=== PATIENT | female | born 1990 | race African-American/Black ===

== ENCOUNTER 2018-11-20 08:23 | Emergency (ER) | payer MEDICAID ==
[~2018-11-20] VITALS: Ht 160 cm; Wt 63.5 kg
[2018-11-20 08:41] VITALS: BP 105/66
== END 2018-11-20 10:44 | disposition left against medical advice (07) ==
LOC: ER 08:23
DX: H92.01 Otalgia, right ear (principal)
CPT/HCPCS: 99281

== ENCOUNTER 2021-07-05 16:49 | Emergency (ER) | payer MEDICAID ==
[~2021-07-05] VITALS: Ht 160 cm; Wt 69.0 kg
[2021-07-05 17:02] VITALS: BP 112/66
[2021-07-05] MEDS ORDERED: ACETAMINOPHEN 325MG TABLET PO PRN (17:30)
[2021-07-05 17:44] LABS: CLARITY URINE CLEAR (CLEAR); COLOR URINE YELLOW (YELLOW); KETONES URINE NEGATIVE (NEGATIVE); LEUKOCYTE ESTERASE URINE 1+ (NEGATIVE); NITRITE URINE NEGATIVE (NEGATIVE); OCCULT BLOOD URINE NEGATIVE (NEGATIVE); PROTEIN URINE NEGATIVE (NEGATIVE); SPECIFIC GRAVITY URINE 1.014 (1.005-1.030); UROBILINOGEN URINE 0.2 E.U./dL (0.2-1.0)
[2021-07-05 19:13] LABS: BASOPHILS % 0.8 % (0.0-2.0); EOSINOPHILS % 1.6 % (0.0-5.0); HEMATOCRIT. 37.8 % (36.0-48.0); HEMOGLOBIN. 13.1 g/dL (12.0-16.0); LYMPHOCYTES % 37.3 % (20.0-50.0); MEAN CORPUSCULAR HEMOGLOBIN 31.5 pg (28.0-32.0); MEAN CORPUSCULAR VOLUME 91.2 fL (81.0-99.0); MEAN PLATELET VOLUME 7.9 fl (7.4-10.4); MONOCYTES % 6.8 % (2.0-8.0); NEUTROPHILS % 53.5 % (40.0-76.0); PLATELET 264 x1000/uL (130-400); RED BLOOD CELL COUNT 4.15 mill/uL (4.2-5.4); RED CELL DISTRIBUTION WIDTH 12.9 % (11.6-14.6)
[2021-07-05 19:20] LABS: CHLORIDE 107 mEq/L (98-107)
[2021-07-05] MEDS ORDERED: NITR-87 MT (19:28)
[2021-07-05 19:43] LABS: B-HCG QUANTITATIVE 1731 mIU/mL (<3)
== END 2021-07-05 20:11 | disposition home or self-care (01) ==
LOC: ER 16:49
DX: O26.891 Other specified pregnancy related conditions, first trimester (principal); R10.2 Pelvic and perineal pain; Z3A.01 Less than 8 weeks gestation of pregnancy; Z88.0 Allergy status to penicillin
CPT/HCPCS: 36415; 76801; 80053; 81003; 81025; 84702; 85025; 86850; 86900; 99284

== ENCOUNTER 2021-07-07 16:56 | Emergency (ER) | payer MEDICAID ==
[~2021-07-07] VITALS: Ht 167.6 cm; Wt 88.0 kg
[~2021-07-07 16:56] MED LIST: NITR-87 MT
[2021-07-07 17:13] VITALS: BP 96/54
== END 2021-07-07 18:58 | disposition left against medical advice (07) ==
LOC: ER 17:12
DX: Z53.21 Procedure and treatment not carried out due to patient leaving prior to being seen by health care provider (principal); Z88.3 Allergy status to other anti-infective agents

== ENCOUNTER 2022-03-02 01:04 | Observation (INO) | payer MEDICAID ==
[~2022-03-02] VITALS: Ht 160 cm; Wt 77.1 kg
[2022-03-02] MEDS ORDERED: ACETAMINOPHEN 325MG TABLET PO PRN (02:00)
[2022-03-02] MEDS ORDERED: FERR-71 PO (05:30)
[2022-03-02] MEDS ORDERED: PREN1TAB23 PO (05:30)
[2022-03-02] MEDS ORDERED: CALC-1042 PO (05:30)
[2022-03-02] MEDS ORDERED: FOLI0.4T6 PO (05:30)
[2022-03-06] MEDS ORDERED: IBUP-2030 PO (04:18)
== END 2022-03-02 05:55 | disposition home or self-care (01) ==
LOC: 8 EST LDRP 01:04
PROVIDERS: ADMIT Obstetrics & Gynecology; ATTEND Obstetrics & Gynecology
DX: O62.9 Abnormality of forces of labor, unspecified (principal); O36.8130 Decreased fetal movements, third trimester, not applicable or unspecified; O99.891 Other specified diseases and conditions complicating pregnancy; M54.9 Dorsalgia, unspecified; Z3A.38 38 weeks gestation of pregnancy
CPT/HCPCS: 59025; 76805; 76818; G0378

== ENCOUNTER 2022-03-03 06:11 | Observation (INO) | payer MEDICAID ==
[~2022-03-03] VITALS: Ht 160 cm; Wt 77.1 kg
[~2022-03-03 06:11] MED LIST changes: +CALC-1042 PO; +FERR-71 PO; +FOLI0.4T6 PO; +PREN1TAB23 PO
[2022-03-06] MEDS ORDERED: IBUP-2030 PO (04:18)
== END 2022-03-03 09:10 | disposition home or self-care (01) ==
LOC: 8 EST LDRP 06:11
PROVIDERS: ADMIT Obstetrics & Gynecology; ATTEND Obstetrics & Gynecology
DX: O62.9 Abnormality of forces of labor, unspecified (principal); Z3A.39 39 weeks gestation of pregnancy
CPT/HCPCS: 59025; G0378; 99281; G0379

== ENCOUNTER 2022-03-10 11:32 | Emergency (ER) | payer MEDICAID ==
[~2022-03-10] VITALS: Ht 160 cm; Wt 73.0 kg
[~2022-03-10 11:32] MED LIST changes: +IBUP-2030 PO; -NITR-87 MT
[2022-03-10 13:04] LABS: HEMATOCRIT. 36.3 % (36.0-48.0); HEMOGLOBIN. 12.5 g/dL (12.0-16.0); MEAN CORPUSCULAR HEMOGLOBIN 32.4 pg (28.0-32.0); MEAN CORPUSCULAR VOLUME 93.9 fL (81.0-99.0); MEAN PLATELET VOLUME 6.8 fl (7.4-10.4); PLATELET 409 x1000/uL (130-400); RED BLOOD CELL COUNT 3.86 mill/uL (4.2-5.4)
[2022-03-10 13:25] LABS: ATYPICAL LYMPHOCYTES 1; PLATELET ESTIMATE SLIGHTLY INCREASED
[2022-03-10 15:14] VITALS: BP 112/68
== END 2022-03-10 15:16 | disposition home or self-care (01) ==
LOC: ER 11:32
DX: R10.30 Lower abdominal pain, unspecified (principal); Z98.890 Other specified postprocedural states; G89.18 Other acute postprocedural pain; Z88.0 Allergy status to penicillin; Z79.899 Other long term (current) drug therapy
CPT/HCPCS: 36415; 85025; 99283

== ENCOUNTER 2025-10-15 08:45 | Emergency (ER) | payer MEDICAID, OTHER ==
[~2025-10-15] VITALS: Ht 167.6 cm; Wt 60.0 kg
[2025-10-15 08:51] VITALS: O2SAT 99
[2025-10-15 08:57] VITALS: BP 119/83; PULSE 97; RESP 18; TEMP 36.6; O2SAT 97
[2025-10-15] MEDS: OXYCODONE HCL/ACETAMINOPHEN 5/325MG TABLET PO ONE (10:01)
[2025-10-15] MEDS: PREDNISONE 20MG TABLET PO ONE (10:02)
[2025-10-15] MEDS ORDERED: P50 MT (11:03)
[2025-10-15] MEDS ORDERED: OXYC-100 MT (11:03)
[2025-10-18] MEDS ORDERED: LIDO1ADH16 TP (12:20)
[2025-10-18] MEDS ORDERED: GABA-1180 MT (12:20)
[2025-10-18] MEDS ORDERED: HYDR-4001 PO (12:20)
[2025-10-18] MEDS ORDERED: CYCL10TA21 PO (12:20)
== END 2025-10-15 11:22 | disposition home or self-care (01) ==
LOC: ER 09:29
DX: M54.40 Lumbago with sciatica, unspecified side (principal); Z98.890 Other specified postprocedural states; Z91.040 Latex allergy status; Z88.0 Allergy status to penicillin
CPT/HCPCS: 99283; 81025; 72100; J7512